=== PATIENT | female | born 1995 | race African-American/Black ===

== ENCOUNTER 2017-07-28 14:26 | Emergency (ER) | payer MEDICAID ==
[~2017-07-28] VITALS: Ht 162.6 cm; Wt 73.0 kg
[2017-07-28] MEDS ORDERED: ALBUTEROL (0.083%) 2.5MG/3ML NEB HHN STA (18:43)
[2017-07-28] MEDS ORDERED: PREDNISONE 20MG TABLET PO STA (18:43)
[2017-07-28 19:13] VITALS: BP 130/80
== END 2017-07-28 19:39 | disposition home or self-care (01) ==
LOC: ER 15:02
DX: J20.9 Acute bronchitis, unspecified (principal); F17.210 Nicotine dependence, cigarettes, uncomplicated; Z71.6 Tobacco abuse counseling
CPT/HCPCS: 71045; 81025; 93005; 94640; 99284; 99406; J7512; J7611